=== PATIENT | female | born 1980 | race Caucasian/White ===

== ENCOUNTER → 2019-04-26 08:45 | Outpatient (CLI) | payer MEDICARE ==
[~2019-04-26] VITALS: Ht 162.6 cm; Wt 88.5 kg
[~2019-04-26 08:45] MED LIST: FARXIGA10 MG PO; GLUCOPHAGE1000 MG PO; LIPITOR10 MG PO; LISINOPRIL2.5 MG PO
[2019-04-26 10:04] VITALS: Ht 162.6 cm; Wt 88.5 kg
== END | disposition home or self-care (01) ==
LOC: D.FANS 08:45
PROVIDERS: ATTEND Family Medicine
DX: E11.65 Type 2 diabetes mellitus with hyperglycemia (principal)

== ENCOUNTER 2019-04-28 17:32 | Emergency (ER) | payer MEDICARE ==
[~2019-04-28] VITALS: Ht 160 cm; Wt 88.6 kg
[2019-04-28 17:43] VITALS: Ht 160 cm; Wt 88.6 kg
[2019-04-28] MEDS ORDERED: GLUCOPHAGE1000 MG PO (17:45)
[2019-04-28] MEDS ORDERED: LIPITOR10 MG PO (17:45)
[2019-04-28] MEDS ORDERED: LISINOPRIL2.5 MG PO (17:46)
[2019-04-28] MEDS ORDERED: FARXIGA10 MG PO (17:46)
[2019-04-28 18:06] LABS: BASOPHILS 0.2 % (0-2); EOSINOPHILS 1.7 % (0-7); HEMATOCRIT 40.1 % (36.0-48.0); HEMOGLOBIN 13.4 g/dL (12-16); IMMATURE GRANULOCYTES 0.2 % (0-5); LYMPHOCYTES 34.8 % (15-50); MCH 30.5 pg (26.0-34.0); MCHC 33.4 g/dL (31.0-37.0); MCV 91.3 fL (80.0-100.0); MEAN PLATELET VOLUME 12.2 fL (7.4-10.4); MONOCYTES 8.5 % (2-11); NEUTROPHILS 54.6 % (40-80); PLATELET COUNT 210 10x3/uL (130-400); RBC 4.39 10x6/uL (4.00-5.40); RDW 11.9 % (11.5-14.5); WBC 6.5 10x3/uL (4.8-10.8)
[2019-04-28 18:15] LABS: CALC OSMOLALITY 284 mosm/kg (275-300); CALCIUM 9.1 mg/dL (8.5-10.1); CARBON DIOXIDE 28.9 mmol/L (21.0-32.0); CHLORIDE - SERUM 103 mmol/L (98-107); CREATININE - SERUM 0.5 mg/dL (0.6-1.3); GLUCOSE 221 mg/dL (74-106); POTASSIUM - SERUM 3.2 mmol/L (3.5-5.1); SODIUM 140 mmol/L (136-145); UREA NITROGEN 11 mg/dL (7-18); eGFR NON AFRICAN AMERICAN > 90 mL/min (90-120)
[2019-04-28 18:29] LABS: APTT 29.7 SECONDS (22.8-39.4); INR 1.02 (0.85-1.17); PROTIME 13.4 SECONDS (11.6-15.0)
[2019-04-28 18:42] LABS: ALBUMIN 3.9 g/dL (3.4-5.0); ALKALINE PHOSPHATASE 102 U/L (30-120); ALT (SGPT) 37 U/L (10-68); BILIRUBIN - TOTAL 0.27 mg/dL (0.2-1.3); CKMB 0.9 U/L (0.0-3.6); CREATINE KINASE 99 UL (21-215); MAGNESIUM - SERUM 1.7 mg/dL (1.8-2.4); PROTEIN - SERUM 7.1 g/dL (6.4-8.2)
[2019-04-28 18:44] LABS: TROPONIN-I < 0.017 ng/mL (0.000-0.060)
[2019-04-28 19:05] VITALS: BP 116/69
== END 2019-04-28 19:05 | disposition home or self-care (01) ==
LOC: D.ER 17:32
PROVIDERS: Family Medicine
DX: R07.89 Other chest pain (principal); E11.9 Type 2 diabetes mellitus without complications; Z79.84 Long term (current) use of oral hypoglycemic drugs; E78.5 Hyperlipidemia, unspecified

== ENCOUNTER 2020-05-17 14:30 | Outpatient (CLI) | payer MEDICARE ==
[2019-04-28 17:43] VITALS: BMI 34.6
== END 2020-05-17 23:59 | disposition home or self-care (01) ==
LOC: D.MAMMO 14:30
PROVIDERS: ATTEND Family Medicine
DX: N64.4 Mastodynia (principal)

== ENCOUNTER → 2020-05-24 10:56 | Outpatient (CLI) | payer MEDICARE ==
[2019-04-28 17:43] VITALS: BMI 34.6
== END | disposition home or self-care (01) ==
LOC: D.US 10:56
PROVIDERS: ATTEND Family Medicine
DX: N64.4 Mastodynia (principal)

== ENCOUNTER → 2020-05-30 09:48 | Outpatient (CLI) | payer MEDICARE ==
[2019-04-28 17:43] VITALS: BMI 34.6
== END | disposition home or self-care (01) ==
LOC: D.US 09:48
PROVIDERS: ATTEND Family Medicine
DX: N64.4 Mastodynia (principal)